=== PATIENT | female | born 1985 | race Caucasian/White ===

== ENCOUNTER 2019-09-17 19:57 | Emergency (ER) | payer OTHER ==
[~2019-09-17] VITALS: Ht 160 cm; Wt 102.5 kg
[2019-09-17 20:14] VITALS: BP 139/52
--- NOTE | 2019-09-18 00:20 | NUR ---
PT LWBS BY CATRACHITO GARCÍA.
== END 2019-09-18 00:20 | disposition left against medical advice (07) ==
LOC: MED 19:57
DX: T14.8XXA Other injury of unspecified body region, initial encounter (principal); W57.XXXD Bitten or stung by nonvenomous insect and other nonvenomous arthropods, subsequent encounter; Z53.21 Procedure and treatment not carried out due to patient leaving prior to being seen by health care provider